=== PATIENT | male | born 1985 | race Caucasian/White ===

== ENCOUNTER 2018-11-17 02:08 | Inpatient (IN) | payer SELFPAY ==
[~2018-11-17] VITALS: Ht 167.6 cm; Wt 83.9 kg
[2018-11-17 03:02] LABS: BASOPHIL % 0.5 % (0-2); PLATELET COUNT 394 x10^3mcL (130-400); RED CELL DISTRIBUTION WIDTH 13.6 % (11.5-14.5)
[2018-11-17 03:12] LABS: ALBUMIN 3.7 g/dL (3.4-5.0); ALKALINE PHOSPHATASE 105 U/L (46-116); ALT/SGPT 98 U/L (16-63); AST/SGOT 40 U/L (15-37); BILIRUBIN TOTAL 0.3 mg/dL (0.20-1.00); CALCIUM 8.9 mg/dL (8.5-10.1); CARBON DIOXIDE 27.7 mmol/L (21-32); CHLORIDE SERUM 98 mmol/L (98-107); CREATININE SERUM 0.9 mg/dL (0.7-1.3); GFR1 > 60 mL/min; GLUCOSE SERUM 195 mg/dL (74-106); LIPASE 934 IU/L (73-393); POTASSIUM SERUM 3.1 mmol/L (3.5-5.1); SODIUM SERUM 139 mmol/L (136-145); TOTAL PROTEIN, SERUM 7.4 g/dL (6.4-8.2)
[2018-11-17 04:20] LABS: UA SPECIFIC GRAVITY <=1.005 (1.005-1.035); microscopic required? YES; urine erythrocyte TRACE (NEGATIVE)
[2018-11-17 04:30] LABS: AMPHETAMINE QUAL UR NONE DETECTED (See below)
[2018-11-17 04:40] LABS: MAGNESIUM 1.6 mg/dL (1.8-2.4); PHOSPHOROUS 2.2 mg/dL (2.5-4.9)
[2018-11-17 04:41] LABS: CHOLESTEROL/HDL RATIO 1.5
[2018-11-17 04:56] VITALS: BP 122/79
[2018-11-17 07:12] VITALS: BP 107/65
== END 2018-11-17 10:53 | disposition left against medical advice (07) | DRG 440 ==
LOC: ED 02:08 → DU 04:01
PROVIDERS: Emergency Medicine; Family Medicine
DX: K85.20 Alcohol induced acute pancreatitis without necrosis or infection (principal); E78.1 Pure hyperglyceridemia; F10.129 Alcohol abuse with intoxication, unspecified; E87.6 Hypokalemia; E83.39 Other disorders of phosphorus metabolism; E83.42 Hypomagnesemia; Z53.21 Procedure and treatment not carried out due to patient leaving prior to being seen by health care provider
CPT/HCPCS: G0480; J2270; J2405; J2543; J7030; Q0092